=== PATIENT | male | born 1975 | race Caucasian/White ===

== ENCOUNTER 2023-06-16 08:26 | Outpatient (CLI) | payer BC, SELFPAY ==
--- NOTE | 2023-06-16 08:39 | EST_ITS ---
Patient Info Name: Shun Moreno Age: 48 years : 1975 Gender: Male Ht: 73 in Wt: 275 lbs BSA: 2.58 m2 HR: 67 bpm BP: 124 / 87 mmHg Heart Rhythm: Sinus Rhythm Exam Date: 06/16/2023 8:52 AM Exam Location: Echo Lab Patient Status: Outpatient Admit Date: 06/16/2023 Staff Ordering Physician: Jagruti Palmer PA-C Attending Provider: Jagruti Palmer PA-C Exercise Technologist: Brianna Zuniga CT Nurse: Amrita Edmonds APN Exam Type: CA stress test treadmill Study Info Indications R07.89 - Other chest pain A treadmill exercise stress test was performed. Summary 1. Exercise capacity fair to good at 6-10 METS. 2. Hypertensive blood pressure response to exercise. 3. Occasional PVCs. 4. Patient reported shortness of breath during test. 5. Abnormal ST segment depression consistent with myocardial ischemia. 6. Stress test supervised by Amrita Edmonds NP. Stress test interpreted by Deepak Blount MD. Protocol: [place] Stress ECG Details Stage: REST Duration (min): 1 min : 2 sec Speed (mph): 0.0 Grade (%): 0 HR (bpm): 69 SBP (mmHg): 124 DBP (mmHg): 87 METS: --- Stage: REST Duration (min): 1 min : 31 sec Speed (mph): 0.0 Grade (%): 0 HR (bpm): 65 SBP (mmHg): 124 DBP (mmHg): 87 METS: --- Stage: REST Duration (min): 3 min : 2 sec Speed (mph): 0.0 Grade (%): 0 HR (bpm): 65 SBP (mmHg): 124 DBP (mmHg): 87 METS: --- Stage: REST Duration (min): 12 min : 59 sec Speed (mph): 0.0 Grade (%): 0 HR (bpm): 69 SBP (mmHg): 124 DBP (mmHg): 87 METS: --- Stage: STAGE 1 Duration (min): 1 min : 0 sec Speed (mph): 1.7 Grade (%): 10 HR (bpm): 104 SBP (mmHg): 124 DBP (mmHg): 87 METS: --- Stage: STAGE 1 Duration (min): 2 min : 0 sec Speed (mph): 1.7 Grade (%): 10 HR (bpm): 115 SBP (mmHg): 124 DBP (mmHg): 87 METS: --- Stage: STAGE 1 Duration (min): 3 min : 0 sec Speed (mph): 1.7 Grade (%): 10 HR (bpm): 119 SBP (mmHg): 151 DBP (mmHg): 62 METS: --- Stage: STAGE 2 Duration (min): 1 min : 0 sec Speed (mph): 2.5 Grade (%): 12 HR (bpm): 129 SBP (mmHg): 151 DBP (mmHg): 62 METS: --- Stage: STAGE 2 Duration (min): 2 min : 0 sec Speed (mph): 2.5 Grade (%): 12 HR (bpm): 137 SBP (mmHg): 168 DBP (mmHg): 96 METS: --- Stage: STAGE 2 Duration (min): 3 min : 0 sec Speed (mph): 2.5 Grade (%): 12 HR (bpm): 143 SBP (mmHg): 168 DBP (mmHg): 96 METS: --- Stage: STAGE 3 Duration (min): 0 min : 25 sec Speed (mph): 3.4 Grade (%): 14 HR (bpm): 152 SBP (mmHg): 168 DBP (mmHg): 96 METS: --- Stage: RECOVERY Duration (min): 0 min : 34 sec Speed (mph): 0.0 Grade (%): 0 HR (bpm): 143 SBP (mmHg): 200 DBP (mmHg): 57 METS: --- Stage: RECOVERY Duration (min): 1 min : 34 sec Speed (mph): 0.0 Grade (%): 0 HR (bpm): 125 SBP (mmHg): 200 DBP (mmHg): 57 METS: ---
== END 2023-06-16 08:27 | disposition home or self-care (01) ==
PROVIDERS: PCP Family Medicine; Visit Provider Physician Assistant Medical
DX: R07.9 Chest pain, unspecified (principal); R06.09 Other forms of dyspnea
CPT/HCPCS: 93017

== ENCOUNTER 2023-07-30 15:26 | Outpatient (CLI) | payer BC, SELFPAY ==
--- NOTE | ~2023-07-30 | US_ITS ---
EXAMINATION: US abdomen limited DATE: 07/30/2023 16:15 INDICATION: Right upper quadrant abdominal and epigastric pain. TECHNIQUE: Multiple grayscale and Doppler ultrasound images of the abdomen were obtained. COMPARISON: None FINDINGS: The pancreatic head and body are normal in appearance. The pancreatic tail is not visualized. Liver has normal contour, with a smooth surface. There is increased parenchymal echogenicity and coarsened echotexture consistent with diffuse hepatic steatosis. Geographic region of significantly decreased e chogenicity along the gallbladder fossa most consistent with focal fatty sparing. No intrahepatic bi liary duct dilation suspected. Portal venous flow was seen in the hepatopetal, normal direction and h as normal Doppler waveform. The gallbladder is normal in appearance. There is no cholelithiasis. The common bile duct measures 3 mm, which is normal. Sonographic Burgos sign was reported as negative by the mangle press catcher. Visualized portion of the right kidney demonstrates normal echogenicity and contour with no or hydronephrosis. IMPRESSION: 1. Diffuse hepatic steatosis with focal sparing along the gallbladder fossa. Reviewed, dictated and finalized at location A. FINISHING SUPERVISOR
== END 2023-07-30 15:27 | disposition home or self-care (01) ==
LOC: ANHIMG 15:30
PROVIDERS: PCP Family Medicine; Visit Provider Physician Assistant Medical
DX: R10.13 Epigastric pain (principal); R10.11 Right upper quadrant pain; K76.0 Fatty (change of) liver, not elsewhere classified
CPT/HCPCS: 76705

== ENCOUNTER 2023-09-17 09:49 | Outpatient (CLI) | payer BC, SELFPAY ==
--- NOTE | 2023-09-17 10:03 | ECHO_ITS ---
Patient Info Name: Shun Moreno Age: 48 years : 1975 Gender: Male Ht: 73 in Wt: 275 lbs BSA: 2.58 m2 BP: 122 / 89 mmHg Technical Quality: Fair Exam Date: 09/17/2023 10:05 AM Exam Location: Echo Lab Patient Status: Outpatient Admit Date: 09/17/2023 Staff Ordering Physician: Carmelo Beckford DO Track Hoe Operator: Uriel Gutierrez RDCS Attending Provider: Carmelo Beckford DO Referring Physician: Shakeel HERRERA; Exam Type: CA echo dop color flow w con Study Info Indications R01.1 - Cardiac murmur, unspecified Complete two-dimensional, color flow and Doppler transthoracic echocardiogram is performed. Summary 1. Complete two-dimensional, color flow and Doppler transthoracic echocardiogram is performed. 2. Left ventricular chamber dimension is normal. 3. Ventricular septum is moderately sigmoid shaped. No resting LVOT obstruction. 4. Left ventricular systolic function is normal, estimated at 60-65%. 5. The left ventricular diastolic function is abnormal. 6. E/e' 10 is mildly elevated. 7. Left atrial chamber dimension is mildly enlarged. 8. There is trace aortic valve regurgitation. 9. There is trace mitral valve regurgitation. 10. There is trace tricuspid valve regurgitation. 11. No pulmonary hypertension, estimated pulmonary arterial systolic pressure is 22 mmHg. 12. There is trace pulmonic regurgitation. Left Ventricle E/e' 10 is mildly elevated. Ventricular septum is moderately sigmoid shaped. No resting LVOT obstruction. Left ventricular chamber dimension is normal. Left ventricular systolic function is normal, estimated at 60-65%. The left ventricular diastolic function is abnormal. Right Ventricle Right ventricular chamber dimension is normal. Right ventricular systolic function is normal. Left Atria Left atrial chamber dimension is mildly enlarged. Right Atria Right atrial chamber dimension is normal. Aortic Valve The aortic valve is trileaflet. There is no aortic valve stenosis. There is trace aortic valve regurgitation. Pulmonic Valve There is trace pulmonic regurgitation. Mitral Valve There is no mitral valve stenosis. There is trace mitral valve regurgitation. Tricuspid Valve There is trace tricuspid valve regurgitation. No pulmonary hypertension, estimated pulmonary arterial systolic pressure is 22 mmHg. Pericardium/Pleural There is no pericardial effusion. Inferior Vena Cava Normal inferior vena cava with >50% collapse upon inspiration consistent with normal right atrial pressure, 5 mmHg. Aorta The aortic root size at the sinus of Valsalva is normal. Left Ventricular Outflow Tract Name Value Normal LVOT 2D LVOT Diameter 2.09 cm LVOT Doppler LVOT Peak Gradient 10 mmHg LVOT Mean Gradient 5 mmHg LVOT VTI 27.94 cm LVOT VTI/AV VTI Ratio 0.98 LVOT Stroke Volume 95.74 ml LVOT CO 5.61 l/min LVOT CI 2.17 L/min/m2 Pulmonic Valve Name Value Normal
== END 2023-09-17 09:50 | disposition home or self-care (01) ==
LOC: ANHCARD 09:50
PROVIDERS: PCP Family Medicine; Visit Provider Internal Medicine Cardiovascular Disease
DX: R01.1 Cardiac murmur, unspecified (principal)
CPT/HCPCS: 93306; C8929

== ENCOUNTER 2024-03-18 04:03 | Day surgery (SDC) | payer BC, SELFPAY ==
[2023-07-23 15:48] VITALS: BMI 37.5
--- NOTE | 2023-07-27 11:06 | SUR.PREOP ---
Patient called regarding upcoming procedure. Voicemail left regarding appointment times.
--- NOTE | 2023-08-31 15:21 | PC.NURSE ---
Pt was seen by Dr. Beckford and will be having a cardiac cath. within the next 2 weeks. I have rescheduled him to 10/30/2023 pending the results of his cardiac cath. Pt verbalizes understanding. Dr. De Oliveira office is notified.
--- NOTE | 2023-12-22 14:07 | SUR.PREOP ---
Patient called to reschedule his procedure due to doctor being unavailable. Message left on pt's vm requesting a call back.
--- NOTE | 2023-12-25 09:47 | SUR.PREOP ---
Patient called to reschedule his appointment due to doctor's unavailability. Message left for patient to return call.
--- NOTE | 2023-12-28 10:02 | SUR.PREOP ---
Patient called regarding his appointment on 01/28. Message left requesting callback.
--- NOTE | 2024-03-08 09:50 | PC.NURSE ---
Multiple attempts to reach pt for pre-op interview and instructions have gone unanswered. Messages left with contact # for partner has also been left with no response. Message left on both numbers today that it is important for him to call us regarding this procedure and if he does not respond by 03/09/2024 4pm his procedure will be canceled and he will need to reschedule through the office. My number [phone] was left as the contact number on both numbers. Pt is a reschedule multiple times and his number has ID.
[2024-03-09 11:39] VITALS: BMI 37.5
--- NOTE | 2024-03-17 10:48 | WPDANESEPPF ---
Anes - Initial Pre Proc Eval Procedure: Operation Date: 03/18/24 08:30 Proposed Procedures p Screening Colonoscopy - Stewart Sims MD Date/Time: 03/17/24 10:48 Surgeon: Stewart Sims MD Pre Op Diagnosis: neoplasm screening Patient Data Age: 49 Gender: M Height: 1.85 m Weight: 129.3 kg Allergies Allergy/AdvReac Type Severity Reaction Status Date / Time No Known Allergies Allergy Verified 03/18/24 07:00 Home Medications Medication Instructions Recorded Confirmed Type empagliflozin 10 mg tablet 10 mg PO DAILY 03/09/24 03/09/24 History (Jardiance) lisinopril 20 mg tablet 20 mg PO DAILY 03/09/24 03/09/24 History Patient hx anesthesia problems: none Family hx anesthesia problems: none Results Review: All pre-operative results and documents have been reviewed as part of the pre-operative evaluation. [facility] Past Medical History Medical History (Updated 03/17/24 @ 10:48 by Armando Gann DO) Essential (primary) hypertension Fatty liver [place] syndrome ELOISA (obstructive sleep apnea) Family History Family History Father Diabetes mellitus Social History Social History (Updated 08/28/23 @ 15:07 by Jeri Gregorio [facility]) Smoking packs per day: 1 Smoking cigarettes per day: 20.0 Years smoked: 30 Smoking pack-years: 30.00 Smoking status: Former smoker Tobacco type: cigarettes Second hand tobacco smoke exposure: No Alcohol intake: current Drinks per week: 1 Substance use: never Substance use type: does not use Do You Feel Safe in your Home?: Yes Lack of Transportation: No Lack of Food: Never True Current Housing: I Have Housing Concerned About Future Housing: No Difficulty Paying Gas/Electric Bills: No Difficulty Paying for Meds: No Currently Unemployed: No Education: High School Diploma/GED Difficulty w/ Childcare or Family Care: No Living arrangements: with family Occupation/Education: occupation Gender identity (if verbalized by the patient): Male Spiritual care concerns: No Anes - Eval Final PreProcedure Day of Procedure 03/17/24 10:48 Patient weight: obese Heart: regular rate and rhythm Lungs: clear to auscultation Airway: Mallampati scale class II Neurological: alert and oriented Last oral intake: >/= 8 hours ASA classification: III Emergent: no Anesthetic plan: proceed Anesthesia type and monitoring: general GIVS and standard monitoring Results Review: All pre-operative results and documents have been reviewed as part of the pre-operative evaluation. Informed Consent: The patient's anesthetic plan and its attendant risks and benefits were discussed with the patient/family/POA. Questions were solicited and answers provided to the satisfaction of the patient/family/POA.
[2024-03-18 06:54] VITALS: BP 146/91; PULSE 62; RESP 16; TEMP 36; O2SAT 97
[2024-03-18] MEDS: LACTATED RINGERS 1,000 ML 150 ML IV CONT (07:16)
--- NOTE | 2024-03-18 08:00 | PM.HPGS ---
History of Present Illness History of Present Illness Consent: Risks, benefits, and alternatives have been discussed and questions answered. Patient agrees to proceed with procedure. Chief complaint: neoplasm screening Narrative: Shun Moreno is a 49 year old male here for first screening colonoscopy Review of Systems Review of Systems: All systems reviewed & are unremarkable except as noted in HPI and below PMFSH Past Medical History Medical History (Updated 03/18/24 @ 08:01 by Stewart Sims MD) Colon cancer screening Essential (primary) hypertension Fatty liver [place] syndrome ELOISA (obstructive sleep apnea) Family History Family History Father Diabetes mellitus Social History Social History (Updated 08/28/23 @ 15:07 by Jeri Gregorio [facility]) Smoking packs per day: 1 Smoking cigarettes per day: 20.0 Years smoked: 30 Smoking pack-years: 30.00 Smoking status: Former smoker Tobacco type: cigarettes Second hand tobacco smoke exposure: No Alcohol intake: current Drinks per week: 1 Substance use: never Substance use type: does not use Do You Feel Safe in your Home?: Yes Lack of Transportation: No Lack of Food: Never True Current Housing: I Have Housing Concerned About Future Housing: No Difficulty Paying Gas/Electric Bills: No Difficulty Paying for Meds: No Currently Unemployed: No Education: High School Diploma/GED Difficulty w/ Childcare or Family Care: No Living arrangements: with family Occupation/Education: occupation Gender identity (if verbalized by the patient): Male Spiritual care concerns: No Meds Home Medications and Allergies Home Medications Medication Instructions Recorded Confirmed Type empagliflozin 10 mg tablet 10 mg PO DAILY 03/09/24 03/09/24 History (Jardiance) lisinopril 20 mg tablet 20 mg PO DAILY 03/09/24 03/09/24 History Allergies Allergy/AdvReac Type Severity Reaction Status Date / Time No Known Allergies Allergy Verified 03/18/24 07:00 Vital Signs Vital Signs - 24 hr 03/18/24 06:54 Temperature 96.8 F L Pulse Rate 62 Respiratory Rate 16 Blood Pressure 146/91 H Pulse Oximetry 97 Oxygen Delivery Room Air Exam Const: General: comfortable and no acute distress HENMT: Face/Nose/Sinus: Normal nares present Eyes: General: appearance normal, both eyes and all related structures Neck: Neck: no JVD Resp: Auscultation: clear to auscultation bilaterally Cardio: Rate: regular rate Rhythm: regular rhythm GI: Inspection: non-distended GI Palp: Yes Soft to palpation Skin: General skin exam: normal color Neuro: General: gait normal Speech: normal speech Extrem: General: normal to inspection Psych: Mental Status: mental status grossly normal Assessment and Plan Assessment and plan (1) Colon cancer screening: Code(s): Z12.11 - Encounter for screening for malignant neoplasm of colon Status: Acute Assessment and Plan: colonoscopy
[2024-03-18 08:13] VITALS: BP 124/81; PULSE 74; RESP 16; O2SAT 97
[2024-03-18 08:23] VITALS: BP 123/82; PULSE 60; RESP 16; O2SAT 98
[2024-03-18 08:33] VITALS: BP 119/79; PULSE 60; RESP 16; O2SAT 97
== END 2024-03-18 08:47 | disposition home or self-care (01) ==
PROVIDERS: PCP Family Medicine; Visit Provider Internal Medicine Gastroenterology
PROC: 0DJD8ZZ Inspection of Lower Intestinal Tract, Via Natural or Artificial Opening Endoscopic (ICD-10-PCS; CPT 45378; principal; 2024-03-18 08:30)
DX: Z12.11 Encounter for screening for malignant neoplasm of colon (principal); I10 Essential (primary) hypertension; E80.4 Gilbert syndrome; G47.33 Obstructive sleep apnea (adult) (pediatric); K76.0 Fatty (change of) liver, not elsewhere classified; Z87.891 Personal history of nicotine dependence; Z79.84 Long term (current) use of oral hypoglycemic drugs; E66.9 Obesity, unspecified; Z68.36 Body mass index [BMI] 36.0-36.9, adult
CPT/HCPCS: 45378; J2704; J7120